=== PATIENT | male | born 1985 | race Caucasian/White ===

== ENCOUNTER 2023-12-08 15:27 | Emergency (ER) | payer OTHER, SELFPAY ==
[2023-12-08 15:31] VITALS: BP 152/105
[2023-12-08 15:51] VITALS: BMI 37.6
--- NOTE | 2023-12-08 16:49 | ED.GENMED ---
History of Present Illness
General
Chief Complaint: Skin Surface Trauma
Source: patient
Exam Limitations: none
Time Seen by Provider: 12/08/23 16:27
Nursing documentation reviewed up to this point in time: agreed with
Travel History
Have you had any contact with someone who has COVID-19?: No
Do you have any symptoms of coronavirus? Fever > 100 degrees, chills, cough, shortness of breath, sore throat, loss of taste or smell, muscle aches, or headache?: No
History of Present Illness
History of Present Illness:
38-year-old male presenting to the emergency department today with concerns of fishhook in his left index finger that occurred just prior to arrival when he was using special equipment. Unable to take this out at home. Unsure when his last tetanus
shot was. Denies any history of immunosuppression.
Past History
Past History
ED Past Medical History: None
ED Past Surgical History: None
Social History
Personal:
Living: with family
Review of Systems
Review of Systems
Allergies reviewed?: Yes
All Other Systems: ROS reviewed and negative except as documented in HPI and ROS
Phy Exam
Physical Exam
Physical Exam:
GENERAL: Alert , in no apparent distress
EYE: pupils equal and reactive
NECK: Supple, no significant adenopathy.
ENT: o/p clr, mmm.
CARDIAC: Regular rate and rhythm .
LUNGS: Clear breath sounds bilaterally, no acute respiratory distress, no wheezes/rales/rhonchi
ABDOMEN: Soft, without focal tenderness, no r/g, no cvat
NEUROLOGICAL: Alert and oriented, no focal neuro deficits
SKIN: [place] embedded to the proximal portion of the left index finger. Warm and dry, skin intact.
MUSCULOSKELETAL: No edema, well perfused.
PSYCH: Normal and appropriate interaction.
Course
Vital Signs
Initial and Last Documented VS:
Initial Vital Signs
Temp Pulse Resp BP Pulse Ox
98.3 F 94 18 152/105 96
12/08/23 15:31 12/08/23 15:31 12/08/23 15:31 12/08/23 15:31 12/08/23 15:31
Last Documented Vital Signs
Temp Pulse Resp BP Pulse Ox
98.3 F 94 18 152/105 96
12/08/23 15:31 12/08/23 15:31 12/08/23 15:31 12/08/23 15:31 12/08/23 15:31
Procedures
Foreign Body Removal-Skin
Wound explored and foreign body removed?: Yes
Anesthesia: local and 2% lidocaine
Foreign body removed using: forceps (This was removed via longitudinal traction with a suturing thread and downward pressure to remove the long)
Foreign body removed: completely
MDM/Problems Addressed
MDM/Problems Addressed:
38-year-old male presenting to the emergency department today with concerns of a fishhook stuck in his left index finger occurring just prior to arrival. Area was cleaned anesthetized and then removed with longitudinal traction and downward
pressure removed without incident. Patient cleaned his hands thoroughly does not require prophylactic antibiotics. No risk factors for infection stable for discharge. Given tetanus shot.
*Critical Care Note
Total Time (30-74mins, 75-104mins- exclusive of procedures): Not Applicable
ED Attending Note
-
Portions of this chart may have been created with voice recognition software.� Occasional wrong word or��sound alike� substitutions may have occurred due to the inherent limitations of voice recognition software.
Discharge Plan
Departure
Patient Disposition: Home (Routine Discharge)
Date of Disposition: 12/08/23
Time of Disposition: 16:51
Patient with high blood pressure during this ER visit?: No
Condition: Good
Covid-19: Not Applicable
Discharge Problem:
Fish hook in finger
Instructions: Wound Care (DC)
Prescriptions:
No Action
No Current Medications
0
Referrals:
Martínez Aly MD [Family Provider] -
Activity Restrictions/Additional Instructions:
You came to the emergency department today with concerns of a fishhook. This was removed please keep the area clean covered and return for any worsening, new or concerning symptoms.
Interventions
Interventions:
*Risk Screen - Suicide Last Done: 12/08/23 15:51
*General Assessment Last Done: 12/08/23 15:51
*Neglect/Abuse Screening Last Done: 12/08/23 15:51
ED- Fall Risk Assessment Last Done: 12/08/23 15:51
*ED COVID-19 Vaccine History Last Done: 12/08/23 15:31
ED-Skin Assessment Last Done: 12/08/23 15:51
[2023-12-08] MEDS: ADACEL 0.5 ML IM (17:02)
== END 2023-12-08 17:14 | disposition home or self-care (01) ==
LOC: EMR 15:27
PROVIDERS: EMERGENCY PHYSICIAN Emergency Medicine; FAMILY PHYSICIAN Internal Medicine
DX: S61.241A Puncture wound with foreign body of left index finger without damage to nail, initial encounter (principal); X58.XXXA Exposure to other specified factors, initial encounter; Z23 Encounter for immunization
CPT/HCPCS: 10120; 99283; 90471; 90715

== ENCOUNTER 2024-01-03 23:18 | Emergency (ER) | payer SELFPAY ==
[2024-01-03 23:18] VITALS: BMI 55.1
[2024-01-03 23:40] VITALS: BP 173/100
[2024-01-04] MEDS: MOTRIN 600 MG PO (00:52)
--- NOTE | 2024-01-04 03:17 | ED.GENMED ---
History of Present Illness
General
Chief Complaint: Musculo-Skeletal Complaint
Source: patient
Exam Limitations: none
Time Seen by Provider: 01/04/24 02:31
Nursing documentation reviewed up to this point in time: agreed with
Travel History
Have you had any contact with someone who has COVID-19?: No
Do you have any symptoms of coronavirus? Fever > 100 degrees, chills, cough, shortness of breath, sore throat, loss of taste or smell, muscle aches, or headache?: No
History of Present Illness
History of Present Illness:
Patient presents to ED secondary to worsening right knee pain over the past 2 days, after twisting injury 2 weeks ago. Since injury, patient has been ambulating and working. Denies new injury. Denies loss of sensation or weakness. Denies fever.
Patient is concerned that he may have fluid in his knee joint, which will need to be drained, as he had similar symptoms in the past. Denies inability to bend his knee.
Past History
Past History
ED Past Medical History: None
ED Past Surgical History: None
Social History
Personal:
Living: with family
Review of Systems
Review of Systems
Allergies reviewed?: Yes
All Other Systems: ROS reviewed and negative except as documented in HPI and ROS
Constitutional: Reports no symptoms
Musculoskeletal: Reports other (knee pain)
Skin: Reports no symptoms
Neurological: Reports no symptoms
Phy Exam
Physical Exam
Physical Exam:
Physical Exam
General: no apparent distress, not acutely ill. afebrile. overweight.
Head: nc/at. eomi
Neck: supple. normal range of motion
Neuro: alert and oriented. no focal neurological deficits
Skin: no rash
Psychiatric: well kept. interactive and cooperative
Extremities: right knee: no swelling/erythema/ecchymosis. mild tenderness to palpation over medial aspect of patella.
Course
Orders/Labs/Results
Orders:
Orders
01/04/24 00:00
CR Knee- Right 4 Or More View* Urgent
Reason For Exam: pain and swelling
01/04/24 00:49
Ibuprofen [Motrin] 600 mg .ROUTE .STK-MED ONE
01/04/24 00:52
Ibuprofen [Motrin] 600 mg PO NOW STA
01/04/24 03:18
Crutches-Treatment ONCE
Vital Signs
Initial and Last Documented VS:
Initial Vital Signs
Temp Pulse Resp BP Pulse Ox
98.7 F 87 20 173/100 94
01/03/24 23:40 01/03/24 23:40 01/03/24 23:40 01/03/24 23:40 01/03/24 23:40
Last Documented Vital Signs
Temp Pulse Resp BP Pulse Ox
98.7 F 87 20 173/100 94
01/03/24 23:40 01/03/24 23:40 01/03/24 23:40 01/03/24 23:40 01/03/24 23:40
MDM/Problems Addressed
MDM/Problems Addressed:
X-ray: no acute findings.
History and exam consistent with likely mild knee sprain. However, his symptoms likely worsened, as he is continue to work and ambulating. As such, recommended nonweightbearing with use of provided crutches, Tylenol/Motrin for relief, as well as
orthopedic surgery follow-up as an outpatient.
*Critical Care Note
Total Time (30-74mins, 75-104mins- exclusive of procedures): Not Applicable
ED Attending Note
-
Portions of this chart may have been created with voice recognition software.� Occasional wrong word or��sound alike� substitutions may have occurred due to the inherent limitations of voice recognition software.
Discharge Plan
Departure
Patient Disposition: Home (Routine Discharge)
Date of Disposition: 01/04/24
Time of Disposition: 03:17
Patient with high blood pressure during this ER visit?: Yes
Discharge Problem:
Knee pain
Instructions: How to Use Crutches, Knee Sprain (DC)
Prescriptions:
No Action
No Current Medications
0
Referrals:
Erasmo Patel MD [Active] -
Activity Restrictions/Additional Instructions:
As discussed, please follow-up with referred orthopedic surgeon for further evaluation and treatment. Until then, strongly recommend they continue to use provided crutches, as nonweightbearing will be important to minimize worsening symptoms.
Interventions
Interventions:
*Risk Screen - Suicide Last Done: 01/03/24 23:40
*General Assessment Last Done: 01/03/24 23:40
*Neglect/Abuse Screening Last Done: 01/03/24 23:40
ED- Fall Risk Assessment Last Done: 01/03/24 23:40
*ED COVID-19 Vaccine History Last Done: 01/03/24 23:40
*Nursing Disposition Last Done: 01/04/24 03:28
ED-Musculoskeletal Assessment Last Done: 01/04/24 02:11
Discharge Date and Time
Print Language: [place]
== END 2024-01-04 03:28 | disposition home or self-care (01) ==
LOC: EMR 23:18
PROVIDERS: EMERGENCY PHYSICIAN Emergency Medicine
DX: M25.561 Pain in right knee (principal); R03.0 Elevated blood-pressure reading, without diagnosis of hypertension
CPT/HCPCS: 99283; 73564